=== PATIENT | female | born 1965 | race Caucasian/White ===

== ENCOUNTER 2023-12-09 12:50 | Emergency (ER) | payer OTHER ==
[~2023-12-09] VITALS: Ht 160 cm; Wt 86.0 kg
[2023-12-09 12:55] VITALS: TEMP 97.8
[2023-12-09] MEDS: ketorolac trometh 15mg/ml vial 15 MG/ML ML IM ONE (15:10)
[2023-12-09 15:17] VITALS: BP 144/89; PULSE 92; RESP 16; O2SAT 94
== END 2023-12-09 15:18 | disposition home or self-care (01) ==
LOC: ER 12:50
DX: S00.83XA Contusion of other part of head, initial encounter (principal); S06.0X0A Concussion without loss of consciousness, initial encounter; S16.1XXA Strain of muscle, fascia and tendon at neck level, initial encounter; S00.03XA Contusion of scalp, initial encounter; M54.2 Cervicalgia; W18.39XA Other fall on same level, initial encounter; Y93.89 Activity, other specified; Y92.89 Other specified places as the place of occurrence of the external cause; Y99.8 Other external cause status
CPT/HCPCS: 70450; 72125; 96372; 99285; J1885